=== PATIENT | male | born 1960 | race African-American/Black ===

== ENCOUNTER 2018-08-02 13:18 | Inpatient (IN) | payer OTHER ==
[2018-08-02 14:39] VITALS: BMI 25.9
--- NOTE | 2018-08-02 16:03 | HP ---
COWS - Scale Resting Pulse: 1= [place] 81-100 Sweatin= Chills/Flushing Restless Observation: 1= Difficult to Sit Still Pupil Size: 1= Pupils >than Normal Bone or Joint Aches: 1= Mild Discomfort Runny Nose/ Eye Tearin= Nasal Congestion GI Upset > 30mins: 2= Nausea/Diarrhea Tremor Observation: 1= Tremor [place], Not Seen Yawning Observation: 1= 1-2x During Session Anxiety or Irritability: 1=Feels Anxious/Irritable Goose Flesh Skin: 3=Piloerection COWS Score: 14 CIWA Score - Admission Criteria OASAS Guidelines: Admission for Medically Managed Detox: Requires at least one of the followin. CIWA greater than 12 2. Seizures within the past 24 hours 3. Delirium tremens within the past 24 hours 4. Hallucinations within the past 24 hours 5. Acute intervention needed for co occurring medical disorder 6. Acute intervention needed for co occurring psychiatric disorder 7. Severe withdrawal that cannot be handled at a lower level of care (continued vomiting, continued diarrhea, abnormal vital signs) requiring intravenous medication and/or fluids 8. Admission ROS S - HPI Chief Complaint: heroin detox 58 yo with no medical problems, on no meds, referred here by probation for urine pos for heroin. Wants to start on Suboxone after discharge. heroin- sniffing, 25 bags/day, no h/o OD cocaine- crack $50/day DUR- no meds Utox: MTD, oxy, opi, met, lucinda, fen Allergies/Adverse Reactions: Allergies Allergy/AdvReac Type Severity Reaction Status Date / Time Penicillins Allergy Severe Swelling Verified 08/02/18 14:34 Exam Limitations: No Limitations - Ebola screening Have you traveled outside of the country in the last 21 days: No Have you had contact with anyone from an Ebola affected area: No Patient History - Patient Medical History Hx Anemia: No Hx Asthma: No Hx Chronic Obstructive Pulmonary Disease (COPD): No Hx Cancer: No Hx Cardiac Disorders: No Hx Congestive Heart Failure: No Hx Hypertension: No Hx Hypercholesterolemia: No Hx Pacemaker: No HX Cerebrovascular Accident: No Hx Seizures: No Hx Dementia: No Hx Diabetes: No Hx Gastrointestinal Disorders: No Hx Liver Disease: No Hx Genitourinary Disorders: No Hx Sexually Transmitted Disorders: No Hx Renal Disease (ESRD): No Hx Thyroid Disease: No Hx Human Immunodeficiency Virus (HIV): No (2013 last negative) Hx Hepatitis C: No Hx Depression: No Hx Suicide Attempt: No (DENIES) Hx Bipolar Disorder: No Hx Schizophrenia: No - Patient Surgical History Past Surgical History: No Hx Neurologic Surgery: No Hx Cataract Extraction: No Hx Cardiac Surgery: No Hx Lung Surgery: No Hx Breast Surgery: No Hx Breast Biopsy: No Hx Abdominal Surgery: No Hx Appendectomy: No Hx Cholecystectomy: No Hx Genitourinary Surgery: No Hx Section: No Hx Orthopedic Surgery: No Other Surgical History: h/o hernia operation Anesthesia Reaction: No - PPD History Date: 11/01/14 Results: 0 MM PPD to be Administered?: Yes - Smoking Cessation Smoking history: Current every day smoker Have you smoked in the past 12 months: Yes Aproximately how many cigarettes per day: 20 Cigars Per Day: 0 Hx Chewing Tobacco Use: No Initiated information on smoking cessation: Yes 'Breaking Loose' booklet given: 08/02/18 - Substance & Tx. History Hx Alcohol Use: No Hx Substance Use: Yes Substance Use Type: Cocaine, Heroin Hx Substance Use Treatment: Yes - Substances abused Heroin Substance route: Inhalation Frequency: Daily Amount used: 15 BAGS Age of first use: 8 Date of last use: 08/01/18 Family Disease History - Family Disease History Family History: Denies (pt states no medical problems) Admission Physical Exam BHS - Vital Signs Vital Signs: Vital Signs - 24 hr 08/02/18 08/02/18 14:34 15:53 Temperature 98.4 F 98.4 F Pulse Rate 66 66 Respiratory 19 19 Rate Blood Pressure 125/70 125/70 - Physical General Appearance: Yes: No Apparent Distress, Disheveled, Intoxicated, Tremorous HEENTM: Yes: Within Normal Limits, Hearing grossly Normal, Normal ENT Inspection , Normocephalic, Normal Voice, KAILA, Pharynx Normal Respiratory: Yes: Within Normal Limits, Lungs Clear Neck: Yes: Within Normal Limits Cardiology: Yes: Within Normal Limits, Regular Rhythm, Regular Rate, S1, S2 Abdominal: Yes: Within Normal Limits, Normal Bowel Sounds, Non Tender Genitourinary: Yes: Within Normal Limits Back: Yes: Within Normal Limits Musculoskeletal: Yes: Within Normal Limits Extremities: Yes: Within Normal Limits Neurological: Yes: Within Normal Limits, 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 intact, Fully Oriented, Alert Integumentary: Yes: Within Normal Limits - Diagnostic (1) Cocaine use disorder Current Visit: Yes Status: Acute (2) Opioid dependence with withdrawal Current Visit: No Status: Acute (3) Nicotine dependence Current Visit: No Status: Chronic Qualifiers: Nicotine product type: cigarettes Substance use status: uncomplicated Qualified Code(s): F17.210 - Nicotine dependence, cigarettes, uncomplicated Cleared for Admission S - Detox or Rehab [facility] Level of Care: Medically Managed Breathalyzer - Breathalyzer Breathalyzer: 0 Urine Drug Screen - Test Device Lot number: [id number] Expiration date: 02/27/20 - Control Is test valid?: Yes - Results Drug screen NEGATIVE: No Urine drug screen results: FEN-Fentanyl, MOP-Opiates, OXY-Oxycodone, MTD- Methadone Inpatient Rehab Admission - Rehab Decision to Admit Inpatient rehab admission?: No
[2018-08-02] MEDS ORDERED: MAG HYDROX/AL HYDROX/SIMETH 30 ML UNIT-DOSE CUP PO PRN (16:20)
[2018-08-02] MEDS ORDERED: MENTHOL/PHENOL 1 EACH UD MM PRN (16:20)
[2018-08-02] MEDS ORDERED: METHOCARBAMOL 500 MG TABLET PO PRN (16:20)
[2018-08-02] MEDS ORDERED: MAGNESIUM CITRATE 300 ML BOTTLE PO PRN (16:20)
[2018-08-02] MEDS ORDERED: ACETAMINOPHEN 325 MG TABLET (FP) PO PRN ×2 (16:20)
[2018-08-02] MEDS ORDERED: IBUPROFEN 400 MG TABLET (FP) PO PRN (16:20)
[2018-08-02] MEDS ORDERED: MELATONIN 5 MG TABLETS PO PRN (16:20)
[2018-08-02] MEDS ORDERED: MAGNESIUM HYDROX 2400MG/30ML ORAL SUSPENSION 30 ML CUP PO PRN (16:20)
[2018-08-02] MEDS ORDERED: BISMUTH SUBSALICYLATE 524 MG/30 ML UD PO PRN (16:20)
[2018-08-02] MEDS ORDERED: ONDANSETRON *ODT* 4 MG TABLET SL PRN (16:20)
[2018-08-02] MEDS ORDERED: hydrOXYzine PAMOATE 50 MG CAPSULE (FP) PO PRN (16:22)
[2018-08-02] MEDS ORDERED: METHADONE HCL 10 MG TABLET (FOR DETOX USE ONLY) PO ONE ×2 (17:30→23:00)
[2018-08-02] MEDS: cloNIDine HCL 0.1 MG TABLET PO PRN (17:58)
[2018-08-02] MEDS: THIAMINE HCL 100 MG TABLET (FP) PO SCH (22:22)
[2018-08-03] MEDS ORDERED: METHADONE HCL 10 MG TABLET (FOR DETOX USE ONLY) PO ONE (10:00)
[2018-08-03 10:17] LABS: HEMATOCRIT 40.2 % (35.4-49); HEMOGLOBIN 13.1 GM/dL (11.7-16.9); MCHC 32.6 g/dl (32.0-35.9); MEAN CELL VOLUME 88.9 fl (80-96); MEAN PLT VOLUME 11.1 fl (7.5-11.1); PLATELET COUNT 153 K/MM3 (134-434); RBC 4.52 M/mm3 (4.00-5.60); RDW 14.3 % (11.9-15.9); WHITE BLOOD COUNT 5.2 K/mm3 (4.0-10.0)
--- NOTE | 2018-08-03 10:33 | PN ---
BHS COWS - Scale Resting Pulse: 0= [place] 80 or Below Sweatin= Chills/Flushing Restless Observation: 1= Difficult to Sit Still Pupil Size: 1= Pupils >than Normal Bone or Joint Aches: 1= Mild Discomfort Runny Nose/ Eye Tearin= Nasal Congestion GI Upset > 30mins: 1= Stomach Cramp Tremor Observation of Outstretched Hands: 1= Tremor [place], Not Seen Yawning Observation: 2= >3x During Session Anxiety or Irritability: 1=Feels Anxious/Irritable Goose Flesh Skin: 0=Smooth Skin COWS Score: 10 BHS Progress Note (SOAP) Subjective: body aches muscle sore restlessness Objective: 08/03/18 10:32 Vital Signs Temperature 97.4 F L 08/03/18 09:11 Pulse Rate 53 L 08/03/18 09:11 Respiratory Rate 18 08/03/18 09:11 Blood Pressure 177/97 H 08/03/18 09:11 O2 Sat by Pulse Oximetry (%) 08/03/18 10:33 lab pending Assessment: 08/03/18 10:33 withdrawal sx Plan: continue detox
[2018-08-03 10:35] LABS: ALBUMIN 3.3 g/dl (3.4-5.0); ALK PHOS 101 U/L (45-117); ANION GAP 5 MMOL/L (8-16); BILIRUBIN,TOTAL 0.6 mg/dL (0.2-1); BLOOD UREA NITROGEN 18 mg/dL (7-18); CALCIUM 8.9 mg/dL (8.5-10.1); CHLORIDE 106 mmol/L (98-107); CO2 32 mmol/L (21-32); CREATININE 0.9 mg/dL (0.55-1.3); GLUCOSE,RANDOM 74 mg/dL (74-106); POTASSIUM 3.9 mmol/L (3.5-5.1); SGOT/AST 25 U/L (15-37); SGPT/ALT 29 U/L (13-61); SODIUM 143 mmol/L (136-145); TOT PROT 6.2 g/dl (6.4-8.2)
[2018-08-03] MEDS: PRENATAL VITAMINS W/ FOLIC ACID TABLET (FP) PO SCH (10:50)
[2018-08-03] MEDS: amLODIPine BESYLATE 10 MG TABLET (FP) PO SCH (14:19)
[2018-08-03] MEDS: clonazePAM 0.5 MG TABLET PO PRN (22:24)
[2018-08-03] MEDS: THIAMINE HCL 100 MG TABLET (FP) PO SCH (22:24)
[2018-08-03] MEDS: cloNIDine HCL 0.1 MG TABLET PO PRN (22:24)
[2018-08-04] MEDS ORDERED: METHADONE HCL 10 MG TABLET (FOR DETOX USE ONLY) PO ONE (10:00)
[2018-08-04] MEDS: PRENATAL VITAMINS W/ FOLIC ACID TABLET (FP) PO SCH (10:10)
[2018-08-04] MEDS: amLODIPine BESYLATE 10 MG TABLET (FP) PO SCH (10:11)
--- NOTE | 2018-08-04 13:46 | PN ---
BHS COWS - Scale Resting Pulse: 0= [place] 80 or Below Sweatin= No chills or Flushing Restless Observation: 1= Difficult to Sit Still Pupil Size: 0= Normal to Room Light Bone or Joint Aches: 2= Severe Diffuse Aches Runny Nose/ Eye Tearin= Nasal Congestion GI Upset > 30mins: 0= None Tremor Observation of Outstretched Hands: 0= None Yawning Observation: 1= 1-2x During Session Anxiety or Irritability: 2=Irritable/Anxious Goose Flesh Skin: 3=Piloerection COWS Score: 10 BHS Progress Note (SOAP) Subjective: Body Aches, Anxious. Objective: PATIENT A & O X 3, OBSERVED AMBULATING ON UNIT UNASSISTED. IN NO ACUTE DISTRESS. 08/04/18 13:45 Vital Signs Temperature 96.4 F L 08/04/18 13:20 Pulse Rate 66 08/04/18 13:20 Respiratory Rate 18 08/04/18 13:20 Blood Pressure 114/67 08/04/18 13:20 O2 Sat by Pulse Oximetry (%) Laboratory Tests 08/03/18 08/03/18 08/03/18 07:00 07:00 07:00 WBC 5.2 RBC 4.52 Hgb 13.1 Hct 40.2 MCV 88.9 MCH 29.0 MCHC 32.6 RDW 14.3 Plt Count 153 MPV 11.1 Sodium 143 Potassium 3.9 Chloride 106 Carbon Dioxide 32 Anion Gap 5 L BUN 18 Creatinine 0.9 Creat Clearance w eGFR 86.37 Random Glucose 74 Calcium 8.9 Total Bilirubin 0.6 AST 25 ALT 29 Alkaline Phosphatase 101 Total Protein 6.2 L Albumin 3.3 L RPR Titer Nonreactive LABS NOTED. Assessment: 08/04/18 13:45 WITHDRAWAL SYMPTOMS. Plan: CONTINUE DETOX.
[2018-08-04] MEDS: THIAMINE HCL 100 MG TABLET (FP) PO SCH (22:08)
[2018-08-04] MEDS: clonazePAM 0.5 MG TABLET PO PRN (22:08)
[2018-08-04] MEDS: cloNIDine HCL 0.1 MG TABLET PO PRN (22:09)
[2018-08-05] MEDS ORDERED: METHADONE HCL 10 MG TABLET (FOR DETOX USE ONLY) PO ONE (10:00)
[2018-08-05] MEDS: amLODIPine BESYLATE 10 MG TABLET (FP) PO SCH (10:10)
[2018-08-05] MEDS: PRENATAL VITAMINS W/ FOLIC ACID TABLET (FP) PO SCH (10:10)
--- NOTE | 2018-08-05 13:34 | PN ---
BHS COWS - Scale Resting Pulse: 0= [place] 80 or Below Sweatin= Chills/Flushing Restless Observation: 0= Sits Still Pupil Size: 0= Normal to Room Light Bone or Joint Aches: 1= Mild Discomfort Runny Nose/ Eye Tearin= Nasal Congestion GI Upset > 30mins: 1= Stomach Cramp Tremor Observation of Outstretched Hands: 1= Tremor [place], Not Seen Yawning Observation: 1= 1-2x During Session Anxiety or Irritability: 1=Feels Anxious/Irritable Goose Flesh Skin: 0=Smooth Skin COWS Score: 7 BHS Progress Note (SOAP) Subjective: feeling better less body aches discuss aftercare with staff Objective: 08/05/18 13:32 Vital Signs Temperature 97.7 F 08/05/18 09:10 Pulse Rate 60 08/05/18 09:10 Respiratory Rate 18 08/05/18 09:10 Blood Pressure 118/67 08/05/18 09:10 O2 Sat by Pulse Oximetry (%) Laboratory Last Values WBC 5.2 K/mm3 (4.0-10.0) 08/03/18 07:00 RBC 4.52 M/mm3 (4.00-5.60) 08/03/18 07:00 Hgb 13.1 GM/dL (11.7-16.9) 08/03/18 07:00 Hct 40.2 % (35.4-49) 08/03/18 07:00 MCV 88.9 fl (80-96) 08/03/18 07:00 MCH 29.0 pg (25.7-33.7) 08/03/18 07:00 MCHC 32.6 g/dl (32.0-35.9) 08/03/18 07:00 RDW 14.3 % (11.9-15.9) 08/03/18 07:00 Plt Count 153 K/MM3 (134-434) 08/03/18 07:00 MPV 11.1 fl (7.5-11.1) 08/03/18 07:00 Sodium 143 mmol/L (136-145) 08/03/18 07:00 Potassium 3.9 mmol/L (3.5-5.1) 08/03/18 07:00 Chloride 106 mmol/L (98-107) 08/03/18 07:00 Carbon Dioxide 32 mmol/L (21-32) 08/03/18 07:00 Anion Gap 5 MMOL/L (8-16) L 08/03/18 07:00 BUN 18 mg/dL (7-18) 08/03/18 07:00 Creatinine 0.9 mg/dL (0.55-1.3) 08/03/18 07:00 Creat Clearance w eGFR 86.37 (>60) 08/03/18 07:00 Random Glucose 74 mg/dL (74-106) 08/03/18 07:00 Calcium 8.9 mg/dL (8.5-10.1) 08/03/18 07:00 Total Bilirubin 0.6 mg/dL (0.2-1) 08/03/18 07:00 AST 25 U/L (15-37) 08/03/18 07:00 ALT 29 U/L (13-61) 08/03/18 07:00 Alkaline Phosphatase 101 U/L (45-117) 08/03/18 07:00 Total Protein 6.2 g/dl (6.4-8.2) L 08/03/18 07:00 Albumin 3.3 g/dl (3.4-5.0) L 08/03/18 07:00 RPR Titer Nonreactive (NONREACTIVE) 08/03/18 07:00 lab noted Assessment: 08/05/18 13:34 mild opiate withdrawal sx Plan: continue detox discuss medication assisted maintenance treatment program 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
--- NOTE | 2018-08-05 16:07 | DS ---
[facility] Detox Discharge Summary Admission Date: 08/02/18 Discharge Date: 08/05/18 - History Present History: Opioid Dependence Additional Comments: 58 YEARS OLD MALE ADMITTED ON 08/04/18 FOR OPIATE WITHDRAWAL STABILIZATION INSISTS TO LEAVE THE DETOX UNIT DUE TO HIS ON 6N WANTS TO LEAVE THE DETOX UNIT ALERT NO ACUTE DISTRESS DENIES SUICIDAL IDEATION Pertinent Past History: BRING IN MEDICATION LIST AND LAB REPORT TO AFTERCARE APPOINTMENT - Physical Exam Results Vital Signs: Vital Signs Temperature 98.7 F 08/05/18 13:45 Pulse Rate 68 08/05/18 13:45 Respiratory Rate 18 08/05/18 13:45 Blood Pressure 140/74 08/05/18 13:45 O2 Sat by Pulse Oximetry (%) Pertinent Admission Physical Exam Findings: OPIATE WITHDRAWAL SX Laboratory Last Values WBC 5.2 K/mm3 (4.0-10.0) 08/03/18 07:00 RBC 4.52 M/mm3 (4.00-5.60) 08/03/18 07:00 Hgb 13.1 GM/dL (11.7-16.9) 08/03/18 07:00 Hct 40.2 % (35.4-49) 08/03/18 07:00 MCV 88.9 fl (80-96) 08/03/18 07:00 MCH 29.0 pg (25.7-33.7) 08/03/18 07:00 MCHC 32.6 g/dl (32.0-35.9) 08/03/18 07:00 RDW 14.3 % (11.9-15.9) 08/03/18 07:00 Plt Count 153 K/MM3 (134-434) 08/03/18 07:00 MPV 11.1 fl (7.5-11.1) 08/03/18 07:00 Sodium 143 mmol/L (136-145) 08/03/18 07:00 Potassium 3.9 mmol/L (3.5-5.1) 08/03/18 07:00 Chloride 106 mmol/L (98-107) 08/03/18 07:00 Carbon Dioxide 32 mmol/L (21-32) 08/03/18 07:00 Anion Gap 5 MMOL/L (8-16) L 08/03/18 07:00 BUN 18 mg/dL (7-18) 08/03/18 07:00 Creatinine 0.9 mg/dL (0.55-1.3) 08/03/18 07:00 Creat Clearance w eGFR 86.37 (>60) 08/03/18 07:00 Random Glucose 74 mg/dL (74-106) 08/03/18 07:00 Calcium 8.9 mg/dL (8.5-10.1) 08/03/18 07:00 Total Bilirubin 0.6 mg/dL (0.2-1) 08/03/18 07:00 AST 25 U/L (15-37) 08/03/18 07:00 ALT 29 U/L (13-61) 08/03/18 07:00 Alkaline Phosphatase 101 U/L (45-117) 08/03/18 07:00 Total Protein 6.2 g/dl (6.4-8.2) L 08/03/18 07:00 Albumin 3.3 g/dl (3.4-5.0) L 08/03/18 07:00 RPR Titer Nonreactive (NONREACTIVE) 08/03/18 07:00 LAB NOTED - Treatment Hospital Course: Detox Protocol Followed, Responded well Patient has Accepted a Rehab Referral to: [facility]INTE[facility]GRAM - Medication Discharge Medications: Ambulatory Orders Amlodipine Besylate [Norvasc -] 10 mg PO DAILY 08/03/18 Amlodipine Besylate [Norvasc -] 10 mg PO DAILY #30 tablet 08/05/18 Naloxone HCl [Narcan] 4 mg NS ASDIR PRN #1 spray 08/05/18 - Diagnosis (1) Opioid dependence with withdrawal Current Visit: Yes Status: Acute (2) Nicotine dependence Current Visit: Yes Status: Acute Qualifiers: Nicotine product type: cigarettes Substance use status: in withdrawal Qualified Code(s): F17.213 - Nicotine dependence, cigarettes, with withdrawal - AMA Did Patient Leave Against Medical Advice: Yes
[2018-08-05] MEDS: THIAMINE HCL 100 MG TABLET (FP) PO SCH (22:42)
[2018-08-06] MEDS ORDERED: METHADONE HCL 5 MG TABLET (FOR DETOX USE ONLY) PO ONE (06:00)
[2018-08-06 06:07] VITALS: BP 146/86; PULSE 63; TEMP 97.3
--- NOTE | 2018-08-06 17:19 | PN ---
[facility] Progress Note Note: NOTE: PLEASE DISREGARD PREVIOUS [facility] DETOX DISCHARGE SUMMARY. PATIENT WAS DISCHARGED FROM DETOX UNIT ON 08/06/2018. SEE FOLLOWING [facility] DETOX DISCHARGE NOTE FOR 08/06/2018. Jaqueline SANTOS NP
--- NOTE | 2018-08-06 17:35 | DS ---
[facility] Detox Discharge Summary Admission Date: 08/02/18 Discharge Date: 08/06/18 - History Present History: Cocaine Dependence, Opioid Dependence Additional Comments: PATIENT GOING TO THE [facility] OUTPAT[facility] ( [place], [place]) FOR AFTERCARE. PATIENT WAS DISCHARGED FROM DETOX UNIT IN STABLE MEDICAL CONDITION. Pertinent Past History: Nicotine Dependence. - Physical Exam Results Vital Signs: Vital Signs Temperature 97.3 F L 08/06/18 06:07 Pulse Rate 63 08/06/18 06:07 Respiratory Rate 18 08/06/18 06:30 Blood Pressure 146/86 08/06/18 06:07 O2 Sat by Pulse Oximetry (%) Pertinent Admission Physical Exam Findings: WITHDRAWAL SYMPTOMS. Laboratory Tests 08/03/18 08/03/18 08/03/18 07:00 07:00 07:00 WBC 5.2 RBC 4.52 Hgb 13.1 Hct 40.2 MCV 88.9 MCH 29.0 MCHC 32.6 RDW 14.3 Plt Count 153 MPV 11.1 Sodium 143 Potassium 3.9 Chloride 106 Carbon Dioxide 32 Anion Gap 5 L BUN 18 Creatinine 0.9 Creat Clearance w eGFR 86.37 Random Glucose 74 Calcium 8.9 Total Bilirubin 0.6 AST 25 ALT 29 Alkaline Phosphatase 101 Total Protein 6.2 L Albumin 3.3 L RPR Titer Nonreactive LABS NOTED. - Treatment Hospital Course: Detox Protocol Followed, Detoxed Safely, Responded well, Discharged Condition Good Patient has Accepted a Rehab Referral to: PT GOING TO THE [facility] ([place], [place]). - Medication Discharge Medications: Ambulatory Orders Amlodipine Besylate [Norvasc -] 10 mg PO DAILY 08/03/18 Amlodipine Besylate [Norvasc -] 10 mg PO DAILY #30 tablet 08/05/18 Naloxone HCl [Narcan] 4 mg NS ASDIR PRN #1 spray 08/05/18 - Diagnosis (1) Cocaine use disorder Status: Acute (2) Nicotine dependence Status: Acute Qualifiers: Nicotine product type: cigarettes Substance use status: in withdrawal Qualified Code(s): F17.213 - Nicotine dependence, cigarettes, with withdrawal (3) Opioid dependence with withdrawal Status: Acute - AMA Did Patient Leave Against Medical Advice: No
== END 2018-08-06 08:54 | disposition home or self-care (01) | DRG 773 ==
LOC: YASAS 13:18 → Y3N 17:06
PROVIDERS: ADMIT Surgery; ATTEND Surgery
PROC: HZ2ZZZZ Detoxification Services for Substance Abuse Treatment (ICD-10-PCS; principal; 2018-08-02)
DX: F11.23 Opioid dependence with withdrawal (principal); F14.90 Cocaine use, unspecified, uncomplicated; F17.210 Nicotine dependence, cigarettes, uncomplicated; Z88.0 Allergy status to penicillin
CPT/HCPCS: 36415; 80053; 85027; 86593; J0735

== ENCOUNTER 2018-12-08 20:19 | Inpatient (IN) | payer OTHER ==
[2018-12-08 20:33] VITALS: BMI 27.4
[2018-12-08] MEDS ORDERED: IBUPROFEN 400 MG TABLET (FP) PO PRN (21:36)
[2018-12-08] MEDS ORDERED: BISMUTH SUBSALICYLATE 524 MG/30 ML UD PO PRN (21:36)
[2018-12-08] MEDS ORDERED: cloNIDine HCL 0.1 MG TABLET PO PRN (21:36)
[2018-12-08] MEDS ORDERED: MELATONIN 5 MG TABLETS PO PRN (21:36)
[2018-12-08] MEDS ORDERED: MAG HYDROX/AL HYDROX/SIMETH 30 ML UNIT-DOSE CUP PO PRN (21:36)
[2018-12-08] MEDS ORDERED: METHADONE HCL 10 MG TABLET (FOR DETOX USE ONLY) PO ONE (21:36)
[2018-12-08] MEDS ORDERED: METHOCARBAMOL 500 MG TABLET PO PRN (21:36)
[2018-12-08] MEDS ORDERED: hydrOXYzine PAMOATE 25 MG CAPSULE (FP) PO PRN (21:36)
[2018-12-08] MEDS ORDERED: MAGNESIUM CITRATE 300 ML BOTTLE PO PRN (21:36)
[2018-12-08] MEDS ORDERED: MAGNESIUM HYDROX 2400MG/30ML ORAL SUSPENSION 30 ML CUP PO PRN (21:36)
[2018-12-08] MEDS ORDERED: ACETAMINOPHEN 325 MG TABLET (FP) PO PRN ×2 (21:36)
[2018-12-08] MEDS ORDERED: MENTHOL/PHENOL 1 EACH UD MM PRN (21:36)
--- NOTE | 2018-12-08 21:36 | HP ---
COWS - Scale Resting Pulse: 0= [place] 80 or Below Sweatin= No chills or Flushing Restless Observation: 1= Difficult to Sit Still Pupil Size: 2= Moderately Dilated Bone or Joint Aches: 1= Mild Discomfort Runny Nose/ Eye Tearin= Runny Nose/Eyes GI Upset > 30mins: 2= Nausea/Diarrhea Tremor Observation: 2= Slight Tremor Visible Yawning Observation: 1= 1-2x During Session Anxiety or Irritability: 2=Irritable/Anxious Goose Flesh Skin: 0=Smooth Skin COWS Score: 13 CIWA Score - Admission Criteria OASAS Guidelines: Admission for Medically Managed Detox: Requires at least one of the followin. CIWA greater than 12 2. Seizures within the past 24 hours 3. Delirium tremens within the past 24 hours 4. Hallucinations within the past 24 hours 5. Acute intervention needed for co occurring medical disorder 6. Acute intervention needed for co occurring psychiatric disorder 7. Severe withdrawal that cannot be handled at a lower level of care (continued vomiting, continued diarrhea, abnormal vital signs) requiring intravenous medication and/or fluids 8. Admission ROS [facility] Chief Complaint: I NEED TO STOP Allergies/Adverse Reactions: Allergies Allergy/AdvReac Type Severity Reaction Status Date / Time Penicillins Allergy Severe Swelling Verified 12/08/18 20:24 methadone Allergy Mild Swelling Verified 12/08/18 20:24 History of Present Illness: EXTENSIVE HO OPIATE DEP DENIES SIGNIFICANT HO ABSTINENCE - Ebola screening Have you traveled outside of the country in the last 21 days: No Have you had contact with anyone from an Ebola affected area: No - Review of Systems Constitutional: No Symptoms Reported EENT: reports: No Symptoms Reported Respiratory: reports: No Symptoms reported Cardiac: reports: No Symptoms Reported GI: reports: No Symptoms Reported : reports: No Symptoms Reported Musculoskeletal: reports: No Symptoms Reported Integumentary: reports: No Symptoms Reported Neuro: reports: No Symptoms reported Endocrine: reports: No Symptoms Reported Hematology: reports: No Symptoms Reported Psychiatric: reports: Judgement Intact, Mood/Affect Appropiate, Orientated x3 Patient History - Patient Medical History Hx Anemia: No Hx Asthma: No Hx Chronic Obstructive Pulmonary Disease (COPD): No Hx Cancer: No Hx Cardiac Disorders: No Hx Congestive Heart Failure: No Hx Hypertension: No Hx Hypercholesterolemia: No Hx Pacemaker: No HX Cerebrovascular Accident: No Hx Seizures: No Hx Dementia: No Hx Diabetes: No Hx Gastrointestinal Disorders: No Hx Liver Disease: No Hx Genitourinary Disorders: No Hx Sexually Transmitted Disorders: No Hx Renal Disease (ESRD): No Hx Thyroid Disease: No Hx Human Immunodeficiency Virus (HIV): No Hx Hepatitis C: No Hx Depression: No Hx Suicide Attempt: No Hx Bipolar Disorder: No Hx Schizophrenia: No - Patient Surgical History Past Surgical History: No Hx Neurologic Surgery: No Hx Cataract Extraction: No Hx Cardiac Surgery: No Hx Lung Surgery: No Hx Breast Surgery: No Hx Breast Biopsy: No Hx Abdominal Surgery: Yes Hx Appendectomy: No Hx Cholecystectomy: No Hx Genitourinary Surgery: No Hx Section: No Hx Orthopedic Surgery: No Other Surgical History: h/o hernia operation Anesthesia Reaction: No - PPD History Date: 08/04/18 Results: 0 MM - Smoking Cessation Smoking history: Current every day smoker Have you smoked in the past 12 months: Yes Aproximately how many cigarettes per day: 20 Cigars Per Day: 0 Hx Chewing Tobacco Use: No Initiated information on smoking cessation: Yes 'Breaking Loose' booklet given: 12/08/18 - Substances abused Heroin Substance route: Inhalation Frequency: Daily Amount used: 1 BUNDLE Age of first use: 34 Date of last use: 12/08/18 Cocaine Substance route: Smoking Frequency: 1-3 times last 30 days Amount used: $20-$40 Age of first use: 34 Date of last use: 12/08/18 Family Disease History - Family Disease History Family History: Denies Admission Physical Exam BHS - Vital Signs Vital Signs: Vital Signs - 24 hr 12/08/18 20:29 Temperature 98.2 F Pulse Rate 77 Respiratory 20 Rate Blood Pressure 150/78 - Physical General Appearance: Yes: Disheveled, Other (MALODOROUS) HEENTM: Yes: EOMI Respiratory: Yes: Chest Non-Tender, Lungs Clear Neck: Yes: Within Normal Limits Breast: Yes: Breast Exam Deferred Cardiology: Yes: Regular Rhythm, Regular Rate, S1, S2 Abdominal: Yes: Normal Bowel Sounds, Non Tender Genitourinary: Yes: Within Normal Limits Back: Yes: Normal Inspection Musculoskeletal: Yes: full range of Motion Extremities: Yes: Normal Capillary Refill, Normal Inspection, Normal Range of Motion, Non-Tender 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, Fully Oriented, Alert, Motor Strength 5/5 - Diagnostic (1) Opioid dependence with withdrawal Current Visit: Yes Status: Acute (2) Cocaine use disorder Current Visit: Yes Status: Chronic (3) Nicotine dependence Current Visit: Yes Status: Chronic Qualifiers: Cleared for Admission [facility] - Detox or Rehab [facility] Level of Care: Medically Supervised Breathalyzer - Breathalyzer Breathalyzer: 0 Urine Drug Screen - Test Device Lot number: [id number] Expiration date: 08/27/20 - Control Is test valid?: Yes - Results Drug screen NEGATIVE: No Urine drug screen results: CAMMY-Cocaine, FEN-Fentanyl, MOP-Opiates, OXY-Oxycodone , BUP-Suboxone Inpatient Rehab Admission - Rehab Decision to Admit Inpatient rehab admission?: No
[2018-12-08] MEDS: THIAMINE HCL 100 MG TABLET (FP) PO SCH (22:35)
[2018-12-09] MEDS ORDERED: METHADONE HCL 5 MG TABLET (FOR DETOX USE ONLY) PO ONE (10:00)
[2018-12-09 10:02] LABS: ALBUMIN 3.5 g/dl (3.4-5.0); BILIRUBIN,TOTAL 0.5 mg/dL (0.2-1); BLOOD UREA NITROGEN 29.4 mg/dL (7-18); CALCIUM 9.1 mg/dL (8.5-10.1); POTASSIUM 4.1 mmol/L (3.5-5.1); TOT PROT 6.6 g/dl (6.4-8.2)
[2018-12-09 10:03] LABS: HEMATOCRIT 39.9 % (35.4-49); MCHC 32.5 g/dl (32.0-35.9); MEAN CELL VOLUME 89.2 fl (80-96); MEAN PLT VOLUME 10.4 fl (7.5-11.1); PLATELET COUNT 162 K/MM3 (134-434); RBC 4.47 M/mm3 (4.00-5.60)
[2018-12-09] MEDS: PRENATAL VITAMINS W/ FOLIC ACID TABLET (FP) PO SCH (10:05)
--- NOTE | 2018-12-09 13:51 | PN ---
BHS COWS - Scale Resting Pulse: 0= [place] 80 or Below Sweatin= Chills/Flushing Restless Observation: 1= Difficult to Sit Still Pupil Size: 1= Pupils >than Normal Bone or Joint Aches: 1= Mild Discomfort Runny Nose/ Eye Tearin= Runny Nose/Eyes GI Upset > 30mins: 1= Stomach Cramp Tremor Observation of Outstretched Hands: 1= Tremor [place], Not Seen Yawning Observation: 1= 1-2x During Session Anxiety or Irritability: 2=Irritable/Anxious Goose Flesh Skin: 0=Smooth Skin COWS Score: 11 S Progress Note (SOAP) Subjective: alert,irritable,anxious,interrupted sleep,pain in the body and back Objective: 12/09/18 13:48 Vital Signs Temperature 97.2 F L 12/09/18 13:15 Pulse Rate 65 12/09/18 13:15 Respiratory Rate 18 12/09/18 13:15 Blood Pressure 143/82 12/09/18 13:15 O2 Sat by Pulse Oximetry (%) Laboratory Last Values WBC 7.0 K/mm3 (4.0-10.0) 12/09/18 08:00 RBC 4.47 M/mm3 (4.00-5.60) 12/09/18 08:00 Hgb 13.0 GM/dL (11.7-16.9) 12/09/18 08:00 Hct 39.9 % (35.4-49) 12/09/18 08:00 MCV 89.2 fl (80-96) 12/09/18 08:00 MCH 29.0 pg (25.7-33.7) 12/09/18 08:00 MCHC 32.5 g/dl (32.0-35.9) 12/09/18 08:00 RDW 15.0 % (11.9-15.9) 12/09/18 08:00 Plt Count 162 K/MM3 (134-434) 12/09/18 08:00 MPV 10.4 fl (7.5-11.1) 12/09/18 08:00 Sodium 140 mmol/L (136-145) 12/09/18 08:00 Potassium 4.1 mmol/L (3.5-5.1) 12/09/18 08:00 Chloride 105 mmol/L (98-107) 12/09/18 08:00 Carbon Dioxide 32 mmol/L (21-32) 12/09/18 08:00 Anion Gap 3 MMOL/L (8-16) L 12/09/18 08:00 BUN 29.4 mg/dL (7-18) H 12/09/18 08:00 Creatinine 1.0 mg/dL (0.55-1.3) 12/09/18 08:00 Est GFR (CKD-EPI)AfAm 95.06 12/09/18 08:00 Est GFR (CKD-EPI)NonAf 82.02 12/09/18 08:00 Random Glucose 82 mg/dL (74-106) 12/09/18 08:00 Calcium 9.1 mg/dL (8.5-10.1) 12/09/18 08:00 Total Bilirubin 0.5 mg/dL (0.2-1) 12/09/18 08:00 AST 25 U/L (15-37) 12/09/18 08:00 ALT 26 U/L (13-61) 12/09/18 08:00 Alkaline Phosphatase 100 U/L (45-117) 12/09/18 08:00 Total Protein 6.6 g/dl (6.4-8.2) 12/09/18 08:00 Albumin 3.5 g/dl (3.4-5.0) 12/09/18 08:00 RPR Titer Nonreactive (NONREACTIVE) 12/09/18 08:00 Assessment: 12/09/18 13:48 withdrawal symptom Plan: continue detox methadone regimen,initial bun is 29.4,probably due to dehydration ,encourage oral fluid,repeat bmp in am
[2018-12-09] MEDS: THIAMINE HCL 100 MG TABLET (FP) PO SCH (22:33)
[2018-12-10] MEDS ORDERED: METHADONE HCL 10 MG TABLET (FOR DETOX USE ONLY) PO ONE (10:00)
[2018-12-10] MEDS: PRENATAL VITAMINS W/ FOLIC ACID TABLET (FP) PO SCH (10:05)
[2018-12-10 10:18] LABS: BLOOD UREA NITROGEN 25.3 mg/dL (7-18); CALCIUM 9.3 mg/dL (8.5-10.1); CREATININE 0.8 mg/dL (0.55-1.3); POTASSIUM 3.9 mmol/L (3.5-5.1)
--- NOTE | 2018-12-10 17:47 | PN ---
BHS COWS - Scale Resting Pulse: 0= [place] 80 or Below Sweatin= No chills or Flushing Restless Observation: 1= Difficult to Sit Still Pupil Size: 0= Normal to Room Light Bone or Joint Aches: 0= None Runny Nose/ Eye Tearin= None GI Upset > 30mins: 0= None Tremor Observation of Outstretched Hands: 0= None Yawning Observation: 1= 1-2x During Session Anxiety or Irritability: 0= None Goose Flesh Skin: 3=Piloerection COWS Score: 5 BHS Progress Note (SOAP) Subjective: Patient denies current Withdrawal / Detox symptoms and reports that he feels well overall at this time. Objective: PATIENT A & O X 2 (UNCERTAIN ABOUT CURRENT DAY / DATE). PATIENT OBSERVED AMBULATING ON DETOX UNIT UNASSISTED. IN NO ACUTE DISTRESS. 12/10/18 17:44 Vital Signs Temperature 98.3 F 12/10/18 13:15 Pulse Rate 59 L 12/10/18 13:15 Respiratory Rate 18 12/10/18 13:15 Blood Pressure 143/90 12/10/18 13:15 O2 Sat by Pulse Oximetry (%) Laboratory Tests 12/09/18 12/09/18 12/09/18 08:00 08:00 08:00 WBC 7.0 RBC 4.47 Hgb 13.0 Hct 39.9 MCV 89.2 MCH 29.0 MCHC 32.5 RDW 15.0 Plt Count 162 MPV 10.4 Sodium 140 Potassium 4.1 Chloride 105 Carbon Dioxide 32 Anion Gap 3 L BUN 29.4 H Creatinine 1.0 Est GFR (CKD-EPI)AfAm 95.06 Est GFR (CKD-EPI)NonAf 82.02 Random Glucose 82 Calcium 9.1 Total Bilirubin 0.5 AST 25 ALT 26 Alkaline Phosphatase 100 Total Protein 6.6 Albumin 3.5 RPR Titer Nonreactive 12/10/18 08:00 WBC RBC Hgb Hct MCV MCH MCHC RDW Plt Count MPV Sodium 143 Potassium 3.9 Chloride 107 Carbon Dioxide 29 Anion Gap 7 L BUN 25.3 H Creatinine 0.8 Est GFR (CKD-EPI)AfAm 113.33 Est GFR (CKD-EPI)NonAf 97.78 Random Glucose 76 Calcium 9.3 Total Bilirubin AST ALT Alkaline Phosphatase Total Protein Albumin RPR Titer LABS NOTED. RESULTS OF REPEAT CMP NOTED. MODERATE REDUCTION IN BUN NOTED ON REPEAT ASSESSMENT. PATIENT HAS HAD ELEVATED BUN LEVELS ON PREVIOUS ADMISSIONS. 12/10/18 17:46 Assessment: 12/10/18 17:45 WITHDRAWAL SYMPTOMS. AZOTEMIA. 12/10/18 17:47 Plan: CONTINUE DETOX. INCREASE DAILY PO WATER INTAKE. PATIENT SCHEDULED FOR D/C FROM DETOX UNIT TOMORROW.
[2018-12-10] MEDS: THIAMINE HCL 100 MG TABLET (FP) PO SCH (22:48)
[2018-12-11] MEDS ORDERED: METHADONE HCL 5 MG TABLET (FOR DETOX USE ONLY) PO ONE (06:00)
[2018-12-11 06:24] VITALS: BP 158/90; PULSE 63; TEMP 97.9
--- NOTE | 2018-12-11 18:54 | DS ---
[facility] Detox Discharge Summary Admission Date: 12/08/18 Discharge Date: 12/11/18 - History Present History: Cocaine Dependence, Opioid Dependence Additional Comments: PATIENT RETURNING HOME AND TO WORK. PATIENT WILL ATTEND [facility]GRAM ([place], [place]) FOR AFTERCARE. PATIENT ADVISED TO FOLLOW-UP WITH [facility] ARTIFICER AFTER DISCHARGE FROM DETOX FOR ELEVATED BUN LEVELS NOTED ON DETOX ADMISSION AND REPEAT LABORATORY ASSESSMENTS . PATIENT VERBALIZED UNDERSTANDING OF RECOMMENDATION. COPIES OF RESULTS OF ALL LABS DRAWN WHILE ADMITTED FOR DETOX GIVEN TO PATIENT AT TIME OF DISCHARGE FROM DETOX UNIT. PATIENT WAS DISCHARGED FORM DETOX UNIT IN STABLE MEDICAL CONDITION. Pertinent Past History: Nicotine Dependence, Azotemia. - Physical Exam Results Vital Signs: Vital Signs Temperature 97.9 F 12/11/18 06:24 Pulse Rate 63 12/11/18 06:24 Respiratory Rate 18 12/11/18 06:24 Blood Pressure 158/90 12/11/18 06:24 O2 Sat by Pulse Oximetry (%) Pertinent Admission Physical Exam Findings: WITHDRAWAL SYMPTOMS. Laboratory Tests 12/09/18 12/09/18 12/09/18 08:00 08:00 08:00 WBC 7.0 RBC 4.47 Hgb 13.0 Hct 39.9 MCV 89.2 MCH 29.0 MCHC 32.5 RDW 15.0 Plt Count 162 MPV 10.4 Sodium 140 Potassium 4.1 Chloride 105 Carbon Dioxide 32 Anion Gap 3 L BUN 29.4 H Creatinine 1.0 Est GFR (CKD-EPI)AfAm 95.06 Est GFR (CKD-EPI)NonAf 82.02 Random Glucose 82 Calcium 9.1 Total Bilirubin 0.5 AST 25 ALT 26 Alkaline Phosphatase 100 Total Protein 6.6 Albumin 3.5 RPR Titer Nonreactive 12/10/18 08:00 WBC RBC Hgb Hct MCV MCH MCHC RDW Plt Count MPV Sodium 143 Potassium 3.9 Chloride 107 Carbon Dioxide 29 Anion Gap 7 L BUN 25.3 H Creatinine 0.8 Est GFR (CKD-EPI)AfAm 113.33 Est GFR (CKD-EPI)NonAf 97.78 Random Glucose 76 Calcium 9.3 Total Bilirubin AST ALT Alkaline Phosphatase Total Protein Albumin RPR Titer LABS NOTED. - Treatment Hospital Course: Detox Protocol Followed, Detoxed Safely, Responded well, Discharged Condition Good Patient has Accepted a Rehab Referral to: PT. WILL ATTEND [facility] PROGRAM ([place], [place]). - Medication Discharge Medications: Ambulatory Orders Naloxone HCl [Narcan] 4 mg NS ASDIR PRN #1 spray 08/05/18 - Diagnosis (1) Opioid dependence with withdrawal Status: Acute (2) Cocaine use disorder Status: Chronic (3) Nicotine dependence Status: Chronic Qualifiers: Nicotine product type: cigarettes Substance use status: uncomplicated Qualified Code(s): F17.210 - Nicotine dependence, cigarettes, uncomplicated (4) Azotemia Status: Acute - AMA Did Patient Leave Against Medical Advice: No BHS COWS - Scale Resting Pulse: 0= [place] 80 or Below Sweatin= No chills or Flushing Restless Observation: 1= Difficult to Sit Still Pupil Size: 0= Normal to Room Light Bone or Joint Aches: 0= None Runny Nose/ Eye Tearin= None GI Upset > 30mins: 0= None Tremor Observation of Outstretched Hands: 0= None Yawning Observation: 0= None Anxiety or Irritability: 1=Feels Anxious/Irritable Goose Flesh Skin: 0=Smooth Skin COWS Score: 2
== END 2018-12-11 09:08 | disposition home or self-care (01) | DRG 773 ==
LOC: YASAS 20:19 → Y3N 21:31
PROVIDERS: ADMIT Surgery; ATTEND Surgery
PROC: HZ2ZZZZ Detoxification Services for Substance Abuse Treatment (ICD-10-PCS; principal; 2018-12-08)
DX: F11.23 Opioid dependence with withdrawal (principal); F14.20 Cocaine dependence, uncomplicated; F17.213 Nicotine dependence, cigarettes, with withdrawal; R79.89 Other specified abnormal findings of blood chemistry; Z88.0 Allergy status to penicillin; Z88.8 Allergy status to other drugs, medicaments and biological substances
CPT/HCPCS: 36415; 80048; 80053; 85027; 86593; J0735

== ENCOUNTER 2020-02-02 21:13 | Inpatient (IN) | payer OTHER ==
[2020-02-02 21:58] VITALS: BMI 28.1
[2020-02-03] MEDS ORDERED: MASKS NR ONE (01:41)
[2020-02-03] MEDS ORDERED: MAGNESIUM HYDROX 2400MG/30ML ORAL SUSPENSION 30 ML CUP PO PRN (02:02)
[2020-02-03] MEDS ORDERED: IBUPROFEN 400 MG TABLET (FP) PO PRN (02:02)
[2020-02-03] MEDS ORDERED: MAGNESIUM CITRATE 300 ML BOTTLE PO PRN (02:02)
[2020-02-03] MEDS ORDERED: NICOTINE POLACRILEX 2 MG GUM BC PRN (02:02)
[2020-02-03] MEDS ORDERED: guaiFENesin 200 MG/10 ML 10 ML UNIT-DOSE CUPS PO PRN (02:02)
[2020-02-03] MEDS ORDERED: ACETAMINOPHEN 325 MG TABLET (FP) PO PRN (02:02)
[2020-02-03] MEDS ORDERED: MAG HYDROX/AL HYDROX/SIMETH 30 ML UNIT-DOSE CUP PO PRN (02:02)
[2020-02-03] MEDS ORDERED: LOPERAMIDE HCL 2 MG CAPSULE PO PRN (02:02)
[2020-02-03] MEDS ORDERED: P-EPHED 60MG/TRIPROLIDI 2.5MG TABLET PO PRN (02:02)
[2020-02-03] MEDS ORDERED: METHADONE HCL 10 MG TABLET PO ONE (09:07)
[2020-02-03] MEDS ORDERED: METHADONE 80 MG, METHADONE 20 MG PO ONE (09:07)
[2020-02-03] MEDS ORDERED: METHADONE HCL 10 MG TABLET ONE (09:37)
[2020-02-03] MEDS ORDERED: METHADONE HCL 40 MG DISPERSABLE TABLET ONE (09:38)
[2020-02-03] MEDS: NICOTINE 21 MG/24 HOURS TOPICAL PATCH TD SCH (09:40)
[2020-02-03] MEDS: PRENATAL VITAMINS W/ FOLIC ACID TABLET (FP) PO SCH (09:40)
[2020-02-03 10:17] LABS: HEMATOCRIT 42.7 % (35.4-49); HEMOGLOBIN 13.5 GM/dL (11.7-16.9); MCH 27.5 pg (25.7-33.7); MCHC 31.6 g/dl (32.0-35.9); MEAN CELL VOLUME 86.9 fl (80-96); MEAN PLT VOLUME 10.7 fl (7.5-11.1); PLATELET COUNT 161 K/MM3 (134-434); RBC 4.91 M/mm3 (4.00-5.60); WHITE BLOOD COUNT 6.3 K/mm3 (4.0-10.0)
[2020-02-03 10:19] LABS: POTASSIUM 4.1 mmol/L (3.5-5.1)
[2020-02-03 10:23] LABS: ALBUMIN 3.2 g/dl (3.4-5.0)
[2020-02-03 10:28] LABS: TOT PROT 6.3 g/dl (6.4-8.2)
[2020-02-03 10:35] LABS: BILIRUBIN,TOTAL 0.8 mg/dL (0.2-1)
[2020-02-03 11:31] LABS: SICKLE CELL SCREEN NEGATIVE (NEGATIVE)
[2020-02-03] MEDS: MINERAL OIL/PETROLAT/WATER TOPICAL CREAM 113 GM JAR TP SCH (17:58)
[2020-02-03] MEDS: METHYL SALICYLATE/MENTHOL OINT 30 GM TUBE TP SCH (21:15)
[2020-02-03] MEDS: THIAMINE HCL 100 MG TABLET (FP) PO SCH (21:16)
[2020-02-03] MEDS: MELATONIN 5 MG TABLETS PO SCH (21:16)
[2020-02-04] MEDS ORDERED: METHADONE HCL 10 MG TABLET PO SCH (06:00)
[2020-02-04] MEDS ORDERED: METHADONE HCL 10 MG TABLET ONE (06:06)
[2020-02-04] MEDS ORDERED: METHADONE HCL 40 MG DISPERSABLE TABLET ONE (06:06)
[2020-02-04] MEDS: METHADONE 80 MG, METHADONE 20 MG PO SCH (06:12)
[2020-02-04] MEDS: METHYL SALICYLATE/MENTHOL OINT 30 GM TUBE TP SCH ×2 (09:35→23:42)
[2020-02-04] MEDS: PRENATAL VITAMINS W/ FOLIC ACID TABLET (FP) PO SCH (09:35)
[2020-02-04] MEDS: MINERAL OIL/PETROLAT/WATER TOPICAL CREAM 113 GM JAR TP SCH (09:36)
[2020-02-04] MEDS: NICOTINE 21 MG/24 HOURS TOPICAL PATCH TD SCH (09:36)
[2020-02-04 17:10] LABS: EPI CELLS 1 /uL (0-25.1); HYALINE CASTS 0 /uL (0-3.1); PH,URINE 5.5 (5.0-8.0); URINE APPEARANCE CLEAR; URINE BACTERIA 10 /uL (0-1359); URINE BILIRUBIN NEGATIVE (NEGATIVE); URINE COLOR YELLOW; URINE GLUCOSE (UA) NEGATIVE (NEGATIVE); URINE KETONE NEGATIVE (NEGATIVE); URINE LEUK ESTERASE NEGATIVE (NEGATIVE); URINE NITRITE NEGATIVE (NEGATIVE); URINE PROTEIN NEGATIVE (NEGATIVE); URINE RBC 3 /uL (0-23.9); URINE UROBILINOGEN 0.2 mg/dL (0.2-1.0); URINE WBC 2 /uL (0-25.8)
[2020-02-04] MEDS: THIAMINE HCL 100 MG TABLET (FP) PO SCH (23:42)
[2020-02-04] MEDS: MELATONIN 5 MG TABLETS PO SCH (23:42)
[2020-02-05] MEDS ORDERED: METHADONE HCL 40 MG DISPERSABLE TABLET ONE (03:41)
[2020-02-05] MEDS ORDERED: METHADONE HCL 10 MG TABLET ONE (03:41)
[2020-02-05] MEDS: METHADONE 80 MG, METHADONE 20 MG PO SCH (06:40)
[2020-02-05] MEDS: MINERAL OIL/PETROLAT/WATER TOPICAL CREAM 113 GM JAR TP SCH (10:43)
[2020-02-05] MEDS: PRENATAL VITAMINS W/ FOLIC ACID TABLET (FP) PO SCH (10:43)
[2020-02-05] MEDS: METHYL SALICYLATE/MENTHOL OINT 30 GM TUBE TP SCH ×2 (10:43→21:11)
[2020-02-05] MEDS: NICOTINE 21 MG/24 HOURS TOPICAL PATCH TD SCH (10:43)
[2020-02-05] MEDS: THIAMINE HCL 100 MG TABLET (FP) PO SCH (21:11)
[2020-02-05] MEDS: MELATONIN 5 MG TABLETS PO SCH (21:11)
[2020-02-06] MEDS ORDERED: METHADONE HCL 40 MG DISPERSABLE TABLET ONE (05:07)
[2020-02-06] MEDS ORDERED: METHADONE HCL 10 MG TABLET ONE (05:07)
[2020-02-06] MEDS: METHADONE 80 MG, METHADONE 20 MG PO SCH (07:08)
[2020-02-06] MEDS: PRENATAL VITAMINS W/ FOLIC ACID TABLET (FP) PO SCH (09:38)
[2020-02-06] MEDS: MINERAL OIL/PETROLAT/WATER TOPICAL CREAM 113 GM JAR TP SCH (09:38)
[2020-02-06] MEDS: METHYL SALICYLATE/MENTHOL OINT 30 GM TUBE TP SCH ×2 (09:38→21:51)
[2020-02-06] MEDS: NICOTINE 21 MG/24 HOURS TOPICAL PATCH TD SCH (09:39)
[2020-02-06] MEDS: MELATONIN 5 MG TABLETS PO SCH (21:50)
[2020-02-06] MEDS: THIAMINE HCL 100 MG TABLET (FP) PO SCH (21:52)
[2020-02-07] MEDS: METHADONE 80 MG, METHADONE 20 MG PO SCH (06:37)
[2020-02-07] MEDS ORDERED: METHADONE HCL 10 MG TABLET ONE (06:37)
[2020-02-07] MEDS ORDERED: METHADONE HCL 40 MG DISPERSABLE TABLET ONE (06:37)
[2020-02-07] MEDS: NICOTINE 21 MG/24 HOURS TOPICAL PATCH TD SCH (09:34)
[2020-02-07] MEDS: METHYL SALICYLATE/MENTHOL OINT 30 GM TUBE TP SCH ×2 (09:34→23:02)
[2020-02-07] MEDS: MINERAL OIL/PETROLAT/WATER TOPICAL CREAM 113 GM JAR TP SCH (09:34)
[2020-02-07] MEDS: PRENATAL VITAMINS W/ FOLIC ACID TABLET (FP) PO SCH (09:34)
[2020-02-07] MEDS: HYDROCHLOROTHIAZIDE 12.5 MG CAPSULE (FP) PO SCH (13:36)
[2020-02-07] MEDS ORDERED: NICOTINE 21 MG/24 HOURS TOPICAL PATCH TD ONE (14:20)
[2020-02-07] MEDS: THIAMINE HCL 100 MG TABLET (FP) PO SCH (23:02)
[2020-02-07] MEDS: MELATONIN 5 MG TABLETS PO SCH (23:02)
[2020-02-08] MEDS ORDERED: METHADONE HCL 40 MG DISPERSABLE TABLET ONE (03:19)
[2020-02-08] MEDS ORDERED: METHADONE HCL 10 MG TABLET ONE (03:19)
[2020-02-08] MEDS: METHADONE 80 MG, METHADONE 20 MG PO SCH (07:07)
[2020-02-08] MEDS: METHYL SALICYLATE/MENTHOL OINT 30 GM TUBE TP SCH ×2 (09:27→21:48)
[2020-02-08] MEDS: HYDROCHLOROTHIAZIDE 12.5 MG CAPSULE (FP) PO SCH (09:27)
[2020-02-08] MEDS: MINERAL OIL/PETROLAT/WATER TOPICAL CREAM 113 GM JAR TP SCH (09:27)
[2020-02-08] MEDS: NICOTINE 21 MG/24 HOURS TOPICAL PATCH TD SCH (09:28)
[2020-02-08] MEDS: PRENATAL VITAMINS W/ FOLIC ACID TABLET (FP) PO SCH (09:28)
[2020-02-08] MEDS: MELATONIN 5 MG TABLETS PO SCH (21:48)
[2020-02-08] MEDS: THIAMINE HCL 100 MG TABLET (FP) PO SCH (21:48)
[2020-02-09] MEDS ORDERED: METHADONE HCL 40 MG DISPERSABLE TABLET ONE (03:23)
[2020-02-09] MEDS ORDERED: METHADONE HCL 10 MG TABLET ONE (03:23)
[2020-02-09] MEDS: METHADONE 80 MG, METHADONE 20 MG PO SCH (06:23)
[2020-02-09] MEDS: HYDROCHLOROTHIAZIDE 12.5 MG CAPSULE (FP) PO SCH (09:39)
[2020-02-09] MEDS: PRENATAL VITAMINS W/ FOLIC ACID TABLET (FP) PO SCH (09:39)
[2020-02-09] MEDS: METHYL SALICYLATE/MENTHOL OINT 30 GM TUBE TP SCH ×2 (09:40→21:51)
[2020-02-09] MEDS: MINERAL OIL/PETROLAT/WATER TOPICAL CREAM 113 GM JAR TP SCH (09:40)
[2020-02-09] MEDS: NICOTINE 21 MG/24 HOURS TOPICAL PATCH TD SCH (09:40)
[2020-02-09] MEDS: THIAMINE HCL 100 MG TABLET (FP) PO SCH (21:51)
[2020-02-09] MEDS: MELATONIN 5 MG TABLETS PO SCH (21:51)
[2020-02-10] MEDS ORDERED: METHADONE 80 MG, METHADONE 20 MG PO SCH (06:00)
[2020-02-10] MEDS ORDERED: METHADONE HCL 40 MG DISPERSABLE TABLET ONE (06:44)
[2020-02-10] MEDS ORDERED: METHADONE HCL 10 MG TABLET ONE (06:44)
[2020-02-10 06:46] VITALS: BP 144/89; PULSE 67; TEMP 97.7
[2020-02-10] MEDS: PRENATAL VITAMINS W/ FOLIC ACID TABLET (FP) PO SCH (09:08)
[2020-02-10] MEDS: HYDROCHLOROTHIAZIDE 12.5 MG CAPSULE (FP) PO SCH (09:08)
[2020-02-10] MEDS: METHYL SALICYLATE/MENTHOL OINT 30 GM TUBE TP SCH (09:09)
[2020-02-10] MEDS: MINERAL OIL/PETROLAT/WATER TOPICAL CREAM 113 GM JAR TP SCH (09:10)
[2020-02-10] MEDS: NICOTINE 21 MG/24 HOURS TOPICAL PATCH TD SCH (09:10)
== END 2020-02-10 09:30 | disposition home or self-care (01) | DRG 772 ==
LOC: YASAS 21:13 → Y5N 23:43
PROVIDERS: ADMIT Allergy & Immunology; ATTEND Allergy & Immunology
PROC: HZ42ZZZ Group Counseling for Substance Abuse Treatment, Cognitive-Behavioral (ICD-10-PCS; principal; 2020-02-02)
DX: F11.20 Opioid dependence, uncomplicated (principal); F14.20 Cocaine dependence, uncomplicated; F10.10 Alcohol abuse, uncomplicated; F17.210 Nicotine dependence, cigarettes, uncomplicated; F19.282 Other psychoactive substance dependence with psychoactive substance-induced sleep disorder; F19.24 Other psychoactive substance dependence with psychoactive substance-induced mood disorder; I10 Essential (primary) hypertension; E03.9 Hypothyroidism, unspecified; M79.671 Pain in right foot; M79.672 Pain in left foot; R79.89 Other specified abnormal findings of blood chemistry; R74.8 Abnormal levels of other serum enzymes; Z86.711 Personal history of pulmonary embolism; Z99.89 Dependence on other enabling machines and devices; Z88.0 Allergy status to penicillin
CPT/HCPCS: 36415; 80053; 81003; 85027; 85660; 86780; 93005; 93010; C9803; U0003